=== PATIENT | male | born 1965 | race African-American/Black ===

== ENCOUNTER 2019-03-01 01:24 | Emergency (ER) | payer SELFPAY ==
[~2019-03-01] VITALS: Ht 167.6 cm; Wt 72.6 kg
[2019-03-01] MEDS ORDERED: GLYC1SUP4 RC (01:53)
[2019-03-01 01:57] VITALS: BP 139/79
--- NOTE | 2019-03-01 20:03 | PHYS DOC ---
Past Medical History Past Medical History: No Pertinent History Past Surgical History: No Surgical History Alcohol Use: Occasionally Drug Use: None Adult General Chief Complaint Chief Complaint: WRIST PAIN HPI HPI Patient is a 53 year old right-handed male who presents with right hand pain nontraumatic for the past 3 days. Pain is over the dorsum of right hand. Patient does not have any injury, has been wearing a brace. Reports minimal pain tenderness and swelling over dorsum of hand. No other acute symptoms or complaints. Review of Systems Review of Systems ROS as per HPI All other systems were reviewed and found to be within normal limits, except as documented in this note. Allergies Allergies Allergies Coded Allergies Type Severity Reaction Last Updated Verified No Known Drug Allergies 03/01/19 No Physical Exam Physical Exam Constitutional: Well developed, well nourished, no acute distress, non-toxic appearance. [] HENT: Normocephalic, atraumatic, bilateral external ears normal. [] Eyes: PERRLA, EOMI. [] Neck: Normal range of motion. [] Lungs & Thorax: Respirations nonlabored, lung sounds clear[] Extremities: R Wrist, minimal tenderness swelling over the dorsum right wrist, no joint erythema or warmth or cellulitis appreciated. [] Neurologic: Alert and oriented, normal motor function, normal sensory function, no focal deficits noted. [] Psychologic: Affect normal, judgement normal, mood normal. [] Current Patient Data Vital Signs Vital Signs Date Time Temp Pulse Resp B/P (MAP) Pulse Ox O2 Delivery O2 Flow Rate FiO2 03/01/19 01:57 98.4 96 18 139/79 (99) 98 Room Air 98.4 EKG EKG [] Radiology/Procedures Radiology/Procedures [] Course & Med Decision Making Course & Med Decision Making Pertinent Labs and Imaging studies reviewed. (See chart for details) [Medical screening exam performed. Patient does not have an acute urgent medical condition. Patient declines further evaluation in the emergency department. He is instructed to follow-up with his PCP for further evaluation of wrist] Dragon Disclaimer Dragon Disclaimer This electronic medical record was generated, in whole or in part, using a voice recognition dictation system. Departure Departure Impression: Primary Impression: Encounter for medical screening examination Disposition: HOME, SELF-CARE Condition: STABLE Patient Instructions: Medical Screening Exam Additional Instructions: An emergency medical screening exam was performed and you were found not to have and an emergent medical condition. Please follow-up with your PCP for additional concerns. KURT CARPENTER DO Mar 01, 2019 20:03
== END 2019-03-01 02:40 | disposition home or self-care (01) ==
LOC: ER 01:24
DX: M25.531 Pain in right wrist (principal); R60.9 Edema, unspecified
CPT/HCPCS: 99281